=== PATIENT | female | born 1955 | race Caucasian/White ===

== ENCOUNTER → 2016-11-27 | Outpatient (CLI) | payer OTHER | LOC: COL.RAD 11-23 11:15 | DX: M19.012 Primary osteoarthritis, left shoulder (principal); M75.52 Bursitis of left shoulder; M75.82 Other shoulder lesions, left shoulder ==

== ENCOUNTER → 2016-12-11 | Outpatient (CLI) | payer OTHER | LOC: COL.RAD 12:59 | DX: M25.512 Pain in left shoulder (principal) | CPT/HCPCS: J3301; Q9967 ==